=== PATIENT | female | born 1990 | race Hispanic/Latino ===

== ENCOUNTER 2023-03-27 04:30 | Emergency (ER) | payer OTHER ==
[~2023-03-27] VITALS: Ht 154.9 cm; Wt 52.2 kg
[2023-03-27] MEDS ORDERED: DIPH,PERTUSS(ACELL),TET VAC/PF 0.5 ML VIAL IM ONE (05:00)
[2023-03-27] MEDS ORDERED: MORPHINE 4 MG SYG ONE (05:50)
[2023-03-27 06:00] VITALS: BP 116/52
[2023-03-27] MEDS ORDERED: MORPHINE 4 MG SYG IM ONE (06:00)
[2023-03-27] MEDS ORDERED: IBUP-1493 PO (06:32)
[2023-03-27] MEDS ORDERED: CEPH500B PO (06:32)
== END 2023-03-27 06:41 | disposition home or self-care (01) ==
LOC: EDH 04:30
DX: S82.292A Other fracture of shaft of left tibia, initial encounter for closed fracture (principal); S82.492A Other fracture of shaft of left fibula, initial encounter for closed fracture; S90.512A Abrasion, left ankle, initial encounter; X58.XXXA Exposure to other specified factors, initial encounter; Y93.89 Activity, other specified; Y92.89 Other specified places as the place of occurrence of the external cause; Y99.8 Other external cause status
CPT/HCPCS: 99285; 70450; 29505; 90715; 73630; 73590; 72125; 90471; 96372; J2270